=== PATIENT | female | born 1930 | race Caucasian/White ===

== ENCOUNTER 2016-05-29 03:05 | Inpatient (IN) | payer OTHER, BC ==
[~2016-05-29] VITALS: Ht 154.9 cm; Wt 46.3 kg
[~2016-05-29 03:05] MED LIST: ATORVASTATIN CA20 MG PO; CALCIUM 600600 M2 PO; DIOVAN160 M1 PO; FOLATE1 MG PO; GLUCOTROL5 MG PO; LEVAQUIN500 MG PO; MACROBID100 M1 PO; SINEQUAN25 MG PO; SYNTHROID0.075 MG PO; THEROMEGA1000 MG PO; TIZANIDINE HYDRO2 M1 PO; TOPROL XL100 MG PO; VITAMIN D31000 I1 PO; ZYRTEC10 M2 PO
[2016-05-29 03:29] VITALS: BP 158/71
[2016-05-29] MEDS ORDERED: IBUPROFEN 400 MG TAB ONE (03:29)
--- NOTE | 2016-05-29 03:33 | NUR ---
PT BIBA C/O LLQ, RLQ, AND SUPRAPUBIC PAIN RADIATING TO BL FLANKS SINCE 0200 TODAY. STATES MED HX OF UTI, HTN, AND HYPERTHYROIDISM . DENIES D; SKIN IS PINK/WARM/DRY; AAOX4 WITH EVEN AND STEADY GAIT; LUNGS CLEAR BL; HR EVEN AND REGULAR; PT DENIES ANY FEVER, CP, SOB, OR COUGH AT THIS TIME; PATIENT STATES PAIN OF 5/10 AT THIS TIME; VSS; PATIENT POSITIONED FOR COMFORT; HOB ELEVATED; BEDRAILS UP X2; BED DOWN. ER MD MADE AWARE OF PT STATUS.
[2016-05-29] MEDS ORDERED: NACL 0.9% 500 ML IV SCH (03:39)
--- NOTE | 2016-05-29 04:40 | NUR ---
PT SLEEPING, NO S/S OF DISTRESS NOTED AT THIS TIME.
[2016-05-29] MEDS ORDERED: LEVOFLOXACIN 500 MG/D5W PREMIX 100 ML IV ONE (05:50)
[2016-05-29] MEDS ORDERED: ONDANSETRON 4 MG/2 ML VIAL IVP PRN (06:30)
[2016-05-29] MEDS ORDERED: ACETAMINOPHEN 325 MG TAB PO PRN (06:30)
[2016-05-29] MEDS ORDERED: HYDROcodone/APAP 5/325 MG 1 TAB TAB PO PRN (06:30)
--- NOTE | 2016-05-29 06:50 | NUR ---
Patient will be admitted to care of DR ANSARI. Admited to TELEMETRY. Will go to room 108 B. Belongings list completed. Report to BERNARDA REED.
--- NOTE | 2016-05-29 06:54 | NUR ---
PT TRASFERRED VIA GURNEY WITH SUPPLY CHAIN PLANNER ON BED. TRASFFERED BY SUKUMAR RN, AND AYANNA, EMT. STABLE, NO S/S OF DISTRESS DURING TRANSFER.
--- NOTE | 2016-05-29 07:30 | NUR ---
RECEIVED REPORT FROM THE SAMPLE SEWER NURSE AT BEDSIDE FOR CONTINUITY OF CARE. PATIENT IS AWAKE, ALERT, AND ORIENTED X4. ABLE TO FOLLOW COMMAND AND CLEAR SPEECH. IV ON THE LEFT FOREARM ASYMPTOMATIC, INTACT, PATENT. IV FLUID INFUSING WELL. INITIAL ASSESSMENT DONE. ON 2L O2 VIA NC. NO SOB. SKIN INTACT. ABLE TO AMBULATE TO THE BATHROOM WITH ASSISTANCE. NO S/S OF DISTRESS. VITALS TAKEN IN NORMAL LIMIT. SAFETY MEASURED CHECKED AND WILL CONTINUE TO MONITOR. CALL LIGHT WITHIN REACH.
--- NOTE | 2016-05-29 08:13 | NUR ---
PATIENT HAS BEEN SCREENED AND CATEGORIZED HIGH NUTRITION RISK. PATIENT WILL BE SEEN WITHIN 1-2 DAYS OF ADMISSION. 05/29/16-05/30/[address]
[2016-05-29 08:14] VITALS: BP 134/108
--- NOTE | 2016-05-29 08:30 | NUR ---
DUE MEDS GIVEN AND ROCEPHIN GIVE, PATIENT TOLERATED WELL. WILL CONTINUE TO MONITOR. CALL LIGHT WITHIN REACH.
[2016-05-29] MEDS: NACL 0.9% 1,000 ML IV SCH (08:52)
[2016-05-29] MEDS: DOCUSATE SODIUM 100 MG GELCAP PO SCH (08:53)
[2016-05-29] MEDS ORDERED: INSULIN ASPART SLIDING SCALE 100 UNITS/ML VIAL SUBQ PRN (09:15)
[2016-05-29] MEDS ORDERED: POTASSIUM CHLORIDE 10 MEQ TABER PO SCH (09:38)
--- NOTE | 2016-05-29 10:00 | NUR ---
K-DUR WAS GIVEN FOR LOW POTASSIUM OF 3.3.
--- NOTE | 2016-05-29 10:30 | NUR ---
IV ON THE FOREARM ACCIDENT REMOVAL WHILE IN THE BATHROOM. ANOTHER IV INSERTED ON THE RIGHT FOREARM 20 GAUGE.
--- NOTE | 2016-05-29 11:21 | NUR ---
05/29/16 RD INITIAL ASSESSMENT COMPLETED PLEASE REFER TO NUTRITION ASSESSMENT UNDER CARE ACTIVITY FOR ESTIMATED NUTRITIONAL NEEDS. RD RECOMMENDATIONS: 1. CONTINUE CCHO 60 GM DIET TOLERATED PER MD 2. NOTE PT WITH INCREASED KCAL AND PROTEIN NEEDS D/T SEPSIS --ENCOURAGE INCREASED PO INTAKES 3. RD WILL F/U 3-5 DAYS; MODERATE RISK. CHRIS POLO R
--- NOTE | 2016-05-29 11:30 | NUR ---
BLOOD SUGAR CHECKED 149 NO COVERAGE NEEDED.
--- NOTE | 2016-05-29 11:44 | NUR ---
SS NOTE: PT REQUESTED THAT I CALL HER SON, REYNALDO TO INFORM HIM OF HER HOSPITALIZATION AND TO ASK HIM TO PROVIDE HER WITH ASSISTANCE FOR APPLYING FOR MEDI-TIGRE SO THAT SHE CAN THEN APPLY FOR IN HOME SUPPORTIVE SERVICES MESSAGE LEFT FOR PT'S SON, REYNALDO REGARDING THE ABOVE INFORMATION
[2016-05-29] MEDS: BLOOD GLUCOSE MONITORING 1 DEV DEV FS SCH ×3 (11:45→20:51)
[2016-05-29 12:00] VITALS: BP 117/59
--- NOTE | 2016-05-29 12:00 | NUR ---
VITALS TAKEN AND WITHIN THE NORMAL LIMIT WILL CONTINUE TO MONITOR.
--- NOTE | 2016-05-29 12:33 | NUR ---
DR. ALONSO IS MADE AWARE OF THE LOW MAGNESIUM LEVEL OF 1.5.
[2016-05-29] MEDS ORDERED: MAG SULF 2000 MG/WATER PREMIX 50 ML IV SCH (15:00)
--- NOTE | 2016-05-29 15:00 | NUR ---
MAG SULF GIVEN FOR LOW MAGNESIUM OF 1.5.
--- NOTE | 2016-05-29 15:38 | NUR ---
SS NOTE: I RECEIVED A CALL BACK FROM PT'S SON, REYNALDO. I PROVIDED HIM WITH THE CONTACT INFORMATION TO APPLY FOR MEDI-TIGRE FOR PT AND TO ALSO APPLY FOR IN HOME SUPPORTIVE SERVICES ONCE PT OBTAINS MEDI-TIGRE.
[2016-05-29 16:00] VITALS: BP 112/64
--- NOTE | 2016-05-29 16:00 | NUR ---
VITALS TAKEN AND WITHIN THE NORMAL LIMIT. WILL CONTINUE TO MONITOR.
--- NOTE | 2016-05-29 16:44 | NUR ---
PREVIOUS ECHO REPORT PLACED IN THE CHART
--- NOTE | 2016-05-29 19:24 | NUR ---
REPORT GIVEN TO METER INSTALLER NURSE FOR CONTINUITY OF CARE AT BEDSIDE. PATIENT IN STABLE CONDITION AND ALL NEED MET AT THIS TIME.
--- NOTE | 2016-05-29 19:25 | NUR ---
RECEIVED PT FROM LEV RN PT AAOX4 CHINESE SPEAKER, USING BSC O TELEMETRY SR IV ON RT FA INFUSING WELL , INITIAL ASSESSMENT DONE
[2016-05-29 20:00] VITALS: BP 126/61
[2016-05-29] MEDS: DOXEPIN 25 MG CAP PO SCH (20:52)
[2016-05-29] MEDS: SACCHAROMYCES 250 MG CAP PO SCH (20:52)
--- NOTE | 2016-05-29 21:00 | NUR ---
BLOOD SUGAR TEST 150 NOT COVERAGE
[2016-05-30] VITALS: BP 97/48
--- NOTE | 2016-05-30 | NUR ---
PT IS ASSISTED TO BSC NOT DISTRESS NOTED ON TELEMETRY SR
[2016-05-30] MEDS: NACL 0.9% 1,000 ML IV SCH ×3 (02:42→20:16)
[2016-05-30 04:00] VITALS: BP 117/54
--- NOTE | 2016-05-30 04:00 | NUR ---
SPONGE BATH GIVEN LINEN CHANGED USING BSC VOIDING WELL ON TELEMETRY SR
[2016-05-30] MEDS: BLOOD GLUCOSE MONITORING 1 DEV DEV FS SCH ×4 (06:11→21:00)
[2016-05-30] MEDS: LEVOTHYROXINE 0.075 MG TAB PO SCH (06:12)
--- NOTE | 2016-05-30 06:22 | NUR ---
BLOOD TEST 100 PT REMAIN STBLE NOT DISTRESS NOTED VOIDING WELL ON TELEMETRY SR
--- NOTE | 2016-05-30 07:20 | NUR ---
RECEIVED REPORT FROM THE FRONT OFFICE COORDINATOR NURSE PRESTON AT BEDSIDE FOR CONTINUITY OF CARE. PATIENT IS AWAKE, ALERT, AND ORIENTED X4. ABLE TO FOLLOW COMMAND AND CLEAR SPEECH. IV ON THE RIGHT FOREARM ASYMPTOMATIC, INTACT, PATENT. IV FLUID INFUSING WELL. INITIAL ASSESSMENT DONE. ON 2L O2 VIA NC. NO SOB. SKIN INTACT. ABLE TO AMBULATE TO THE BATHROOM WITH ASSISTANCE. NO S/S OF DISTRESS. VITALS TAKEN AND BP IS LOW 101/47 BUT OTHER VITALS ARE WITHIN THE NORMAL LIMIT. SAFETY MEASURED CHECKED AND WILL CONTINUE TO MONITOR. CALL LIGHT WITHIN REACH.
[2016-05-30] MEDS ORDERED: glipiZIDE 5 MG TAB PO SCH (07:30)
[2016-05-30 07:47] VITALS: BP 101/47
--- NOTE | 2016-05-30 08:00 | NUR ---
METFORMIN AND ROCEPHIN GIVEN. PATIENT TOLERATED WELL.
[2016-05-30] MEDS: LEVOFLOXACIN 250 MG/D5 PREMIX 50 ML IV SCH (08:47)
[2016-05-30] MEDS: tiZANidine 4 MG TAB PO SCH (08:48)
[2016-05-30] MEDS: ATORVASTATIN 20 MG TAB PO SCH (08:48)
[2016-05-30] MEDS: CHOLECALCIFEROL 1,000 IU TAB PO SCH (08:48)
[2016-05-30] MEDS: SACCHAROMYCES 250 MG CAP PO SCH ×2 (08:48→20:15)
[2016-05-30] MEDS: DOCUSATE SODIUM 100 MG GELCAP PO SCH (08:48)
[2016-05-30] MEDS: CALCIUM CARB 600 MG TAB PO SCH (08:49)
[2016-05-30] MEDS: METOPROLOL SUCCINATE 50 MG TABER PO SCH (08:49)
[2016-05-30] MEDS: FOLIC ACID 1 MG TAB PO SCH (08:49)
[2016-05-30] MEDS: VALSARTAN 80 MG TAB PO SCH (08:56)
--- NOTE | 2016-05-30 09:00 | NUR ---
RECHECKED BP, 105/49. HIGH BLOOD PRESSURE MED HELD DUE TO LOW BP. OTHER DUE MEDS GIVEN. PATIENT TOLERATED WELL. WILL CONTINUE TO MONITOR. CALL LIGHT WITHIN REACH.
--- NOTE | 2016-05-30 11:30 | NUR ---
CHECKED BLOOD SUGAR 73 NO COVERAGE NEEDED.
[2016-05-30 12:00] VITALS: BP 106/57
--- NOTE | 2016-05-30 12:00 | NUR ---
VITAL TAKEN AND WITHIN THE NORMAL LIMIT. WILL CONTINUE TO MONITOR.
--- NOTE | 2016-05-30 13:00 | NUR ---
PATIENT DENIED ANY PAIN, NO S/S DISTRESS. EATING HER LUNCH. CALL LIGHT WITHIN REACH.
[2016-05-30 16:00] VITALS: BP 132/60
--- NOTE | 2016-05-30 16:00 | NUR ---
VITALS TAKEN WITHIN THE NORMAL LIMIT. WILL CONTINUE TO MONITOR.
--- NOTE | 2016-05-30 16:30 | NUR ---
BLOOD SUGAR CHECKED 108 NO COVERAGE NEEDED.
--- NOTE | 2016-05-30 19:17 | NUR ---
REPORT GIVEN TO THE RUBBER MILL TENDER NURSE KEVIN AT BEDSIDE. PATIENT IS AWAKE AND IN STABLE CONDITION. ALL NEEDS MET AT THIS TIME.
--- NOTE | 2016-05-30 19:30 | NUR ---
Patient's Plan of Care was discussed and reviewed with HAND ASSEMBLER FOR PULLER OVER: KEVIN Layton
[2016-05-30 20:00] VITALS: BP_SYST 127; BP_SYST 130; BP_DIAS 58; BP_DIAS 65
--- NOTE | 2016-05-30 20:00 | NUR ---
PT IS CURRENTLY AWAKE ALERT RESTING IN BED ASSISTED TO USE THE BEDSIDE COMMODE AND THEN ASSISTED BACK TO BED NEEDS MET.WILL CONTINUE TO MONITOR.CALL LIGHT WITHIN REACH
[2016-05-30] MEDS: DOXEPIN 25 MG CAP PO SCH (20:15)
--- NOTE | 2016-05-30 22:15 | NUR ---
PT IS CURRENTLY SLEEPING IN BED NO PAIN OR DISCOMFORT IVF INFUSING WELL WILL CONTINUE TO MONITOR.
[2016-05-31] VITALS: BP 127/65
--- NOTE | 2016-05-31 00:24 | NUR ---
PT ASSISTED TO THE BEDSIDE COMMODE BY RICKEY LAU AND BACK TO BED,NEEDS MET IVF INFUSING WELL WILL CONTINUE TO MONITOR.
--- NOTE | 2016-05-31 02:50 | NUR ---
PT IS CURRENTLY RESTING IN BED, IN NO DISTRESS WILL CONTINUE TO MONITOR.CALL LIGHT WITHIN REACH.CONTINUES TO BE ASSISTED TO THE BATHROOM NEEDED BY THE PATIENT.
[2016-05-31 04:00] VITALS: BP 134/71
--- NOTE | 2016-05-31 04:00 | NUR ---
PT AWAKENED FOR VITAL SIGNS,PT STABLE, PT DENIES PAIN AND DISCOMFORT NEEDS MET WILL CONTINUE TO MONITOR.
[2016-05-31] MEDS: LEVOTHYROXINE 0.075 MG TAB PO SCH (06:41)
--- NOTE | 2016-05-31 06:51 | NUR ---
PT STABLE ASSISTED TO THE BEDSIDE COMMODE AND BACK TO BED,PT DENIES ANY PAIN AT THIS TIME.IVF INFUSING WELL WILL CONTINUE TO MONITOR.
--- NOTE | 2016-05-31 07:25 | NUR ---
ASSUMED CONTINUITY OF CARE. NO SIGNS AND SYMPTOMS OF ACUTE DISTRESS NOTICED. INITIAL ASSESSMENT DONE. FAMILIARIZED WITH SURROUNDINGS. EXPLAINED DIAGNOSIS, PLAN OF CARE, PAIN MANAGEMENT TEACHING, USE OF CALL LIGHT/BED/TV/BATHROOM. VERBALIZED UNDERSTANDING. FALL PRECAUTION APPLIED. CALL LIGHT WITHIN REACH.
[2016-05-31] MEDS: BLOOD GLUCOSE MONITORING 1 DEV DEV FS SCH ×4 (07:29→21:10)
--- NOTE | 2016-05-31 07:29 | NUR ---
PT STABLE REPORT ENDORSED TO FLOWER CHAIDEZ AT BEDSIDE.
--- NOTE | 2016-05-31 07:30 | NUR ---
PATIENT'S PLAN OF CARE AND MEDICATION REGIMENTS DISCUSSED AND REVIEWED WITH NURSE FORREST CRENSHAW.
[2016-05-31 08:00] VITALS: BP 149/74
[2016-05-31] MEDS: VALSARTAN 80 MG TAB PO SCH (08:51)
[2016-05-31] MEDS: DOCUSATE SODIUM 100 MG GELCAP PO SCH ×2 (08:51→21:17)
[2016-05-31] MEDS: NACL 0.9% 1,000 ML IV SCH ×2 (08:51→21:00)
[2016-05-31] MEDS: FOLIC ACID 1 MG TAB PO SCH (08:52)
[2016-05-31] MEDS: tiZANidine 4 MG TAB PO SCH (08:52)
[2016-05-31] MEDS: CHOLECALCIFEROL 1,000 IU TAB PO SCH (08:52)
[2016-05-31] MEDS: CALCIUM CARB 600 MG TAB PO SCH (08:52)
[2016-05-31] MEDS: ATORVASTATIN 20 MG TAB PO SCH (08:52)
[2016-05-31] MEDS: METOPROLOL SUCCINATE 50 MG TABER PO SCH (08:52)
[2016-05-31] MEDS: SACCHAROMYCES 250 MG CAP PO SCH ×2 (08:52→21:17)
[2016-05-31] MEDS: LEVOFLOXACIN 250 MG/D5 PREMIX 50 ML IV SCH (09:35)
--- NOTE | 2016-05-31 11:00 | NUR ---
ASSISTED TO BEDSIDE COMMODE. TOLERATED WELL. NO C/O PAIN. KEEP SAFE. CALL LIGHT WITHIN REACH.
[2016-05-31] MEDS ORDERED: MAGNESIUM CITRATE 300 ML BTL PO PRN (11:55)
[2016-05-31 12:00] VITALS: BP 109/58
--- NOTE | 2016-05-31 15:00 | NUR ---
IV ACCESS ON RIGHT FOREARM GAUGE #20 INFILTRATED. INSERTED NEW IV ON RIGHT FOREARM GAUGE #22 WITH ASSISTANCE FROM OG SANCHEZ -BERNARDA. TOLERATED WELL.
[2016-05-31 16:00] VITALS: BP 147/77
--- NOTE | 2016-05-31 19:10 | NUR ---
RECEIVED REPORT FROM BERNARDA CLATYON AT BEDSIDE. INITIAL ASSESSMENT COMPLETED. PT AAOX4. PT STABLE, PT RESTING IN BED. PT HAS IV TO RIGHT FOREARM G 22; ASYMPTOMATIC, PATENT AND INTACT. PT'S SKIN IS INTACT. PT USES BEDSIDE COMMODE. ORIENTED PT TO ROOM AND SURROUNDINGS AND USE OF CALL LIGHT. EXPLAINED PLAN OF CARE TO PT AND SHE VERBALIZES UNDERSTANDING. SAFETY MEASURES IN PLACE, WILL CONTINUE TO MONITOR PT.
--- NOTE | 2016-05-31 19:14 | NUR ---
BEDSIDE REPORT GIVEN TO EMMA CAMPOS -BERNARDA. IVF INFUSING WELL. IN STABLE CONDITION.
[2016-05-31 20:00] VITALS: BP 144/88
--- NOTE | 2016-05-31 20:05 | NUR ---
APPLIED SCDS ON PT.
[2016-05-31] MEDS: DOXEPIN 25 MG CAP PO SCH (21:18)
--- NOTE | 2016-05-31 21:20 | NUR ---
PT TOLERATED 2100 MEDS WELL, CALL LIGHT WITHIN REACH.
--- NOTE | 2016-05-31 23:35 | NUR ---
ASSISTED PT TO BEDSIDE COMMODE, PT STABLE. PT BACK IN BED; RECONNECTED IV FLUIDS AND PUT SCDS BACK ON. CALL LIGHT WITHIN REACH.
[2016-06-01 01:46] VITALS: BP 141/75
--- NOTE | 2016-06-01 02:10 | NUR ---
PT REQUESTING A BLANKET; PT STATED THAT SHE IS COLD. CALL LIGHT WITHIN REACH.
[2016-06-01 04:00] VITALS: BP 145/68
[2016-06-01] MEDS: NACL 0.9% 1,000 ML IV SCH ×2 (04:45→22:00)
--- NOTE | 2016-06-01 04:53 | NUR ---
PT REQUESTED TO HAVE SCDS REMOVED TO USED THE BEDSIDE COMMODE. PT BACK IN BED NOW. PT STABLE, WILL CONTINUE TO MONITOR PT.
[2016-06-01] MEDS: LEVOTHYROXINE 0.075 MG TAB PO SCH (05:34)
--- NOTE | 2016-06-01 05:37 | NUR ---
BOX SPRING FRAME BUILDER AT BEDSIDE DRAWING BLOOD. CALL LIGHT WITHIN REACH.
--- NOTE | 2016-06-01 05:37 | NUR ---
0630 MED GIVEN. PT STABLE. CALL LIGHT WITHIN REACH.
[2016-06-01] MEDS: BLOOD GLUCOSE MONITORING 1 DEV DEV FS SCH ×4 (06:02→21:02)
--- NOTE | 2016-06-01 07:00 | NUR ---
ASSUMED CONTINUITY OF CARE. NO SIGNS AND SYMPTOMS OF ACUTE DISTRESS NOTED. INITIAL ASSESSMENT DONE. EXPLAINED DIAGNOSIS, PLAN OF CARE, PAIN MANAGEMENT TEACHING, USE OF CALL LIGHT/BED/BEDSIDE COMMODE/BATHROOM. VERBALIZED UNDERSTANDING. FALL PRECAUTION APPLIED. CALL LIGHT WITHIN REACH.
--- NOTE | 2016-06-01 07:00 | NUR ---
ENDORSED PT IN STABLE CONDITION TO BERNARDA CLAYTON FOR CONTINUITY OF CARE.
[2016-06-01 08:00] VITALS: BP 149/73
[2016-06-01] MEDS: ATORVASTATIN 20 MG TAB PO SCH (08:38)
[2016-06-01] MEDS: CALCIUM CARB 600 MG TAB PO SCH (08:38)
[2016-06-01] MEDS: FOLIC ACID 1 MG TAB PO SCH (08:39)
[2016-06-01] MEDS: tiZANidine 4 MG TAB PO SCH (08:39)
[2016-06-01] MEDS: METOPROLOL SUCCINATE 50 MG TABER PO SCH (08:39)
[2016-06-01] MEDS: DOCUSATE SODIUM 100 MG GELCAP PO SCH ×2 (08:39→20:58)
[2016-06-01] MEDS: SACCHAROMYCES 250 MG CAP PO SCH ×2 (08:40→20:58)
[2016-06-01] MEDS: CHOLECALCIFEROL 1,000 IU TAB PO SCH (08:40)
[2016-06-01] MEDS: VALSARTAN 80 MG TAB PO SCH (08:40)
[2016-06-01] MEDS: LEVOFLOXACIN 250 MG/D5 PREMIX 50 ML IV SCH (09:23)
[2016-06-01] MEDS ORDERED: MAGNESIUM CITRATE 300 ML BTL PO SCH (10:07)
[2016-06-01] MEDS ORDERED: MAG SULF 2000 MG/WATER PREMIX 50 ML IV SCH (10:30)
--- NOTE | 2016-06-01 11:37 | NUR ---
ASSISTED TO BATHROOM. TOLERATED WELL. NO C/O PAIN. NO SOB, NOTED.
[2016-06-01 12:00] VITALS: BP 138/71
[2016-06-01 16:00] VITALS: BP 148/59
--- NOTE | 2016-06-01 19:05 | NUR ---
BEDSIDE REPORT GIVEN TO EMMA CAMPOS -BERNARDA. IVF INFUSING WELL. IN STABLE CONDITION.
--- NOTE | 2016-06-01 19:20 | NUR ---
RECEIVED REPORT FROM BERNARDA CLAYTON AT BEDSIDE. INITIAL ASSESSMENT COMPLETED. PT AAOX4. PT STABLE, PT RESTING IN BED. PT HAS IV TO RIGHT FOREARM G 22; ASYMPTOMATIC, PATENT AND INTACT. PT'S SKIN IS INTACT. PT USES BEDSIDE COMMODE. ORIENTED PT TO ROOM AND SURROUNDINGS AND USE OF CALL LIGHT. EXPLAINED PLAN OF CARE TO PT AND SHE VERBALIZES UNDERSTANDING. SAFETY MEASURES IN PLACE, WILL CONTINUE TO MONITOR PT.
[2016-06-01 20:00] VITALS: BP 141/62
[2016-06-01] MEDS: DOXEPIN 25 MG CAP PO SCH (20:58)
--- NOTE | 2016-06-01 21:02 | NUR ---
PT TOLERATED 2100 MEDS WELL. CALL LIGHT WITHIN REACH.
--- NOTE | 2016-06-01 22:44 | NUR ---
PT ASKED TO HAVE IV DISCONNECTED TO AMBULATE TO THE RESTROOM, PT HAD A BM. PT BACK IN BED. RECONNECTED TO IV FLUIDS, SCDS ON. CALL LIGHT WITHIN REACH.
--- NOTE | 2016-06-01 23:22 | NUR ---
PT STABLE, PT DENIES PAIN/DISCOMFORT. WILL CONTINUE TO MONITOR PT.
[2016-06-02] VITALS: BP 148/69
--- NOTE | 2016-06-02 01:29 | NUR ---
PT USING THE RESTROOM AT THIS TIME. PT STABLE. PT VERY TALKATIVE. WILL CONTINUE TO MONITOR PT.
--- NOTE | 2016-06-02 03:42 | NUR ---
PT SLEEPING COMFORTABLY AT THIS TIME, NO SIGNS OF DISTRESS/DISCOMFORT NOTED AT THIS TIME. CALL LIGHT WITHIN REACH.
[2016-06-02 04:16] VITALS: BP 145/71
[2016-06-02] MEDS: NACL 0.9% 1,000 ML IV SCH (05:46)
[2016-06-02] MEDS: LEVOTHYROXINE 0.075 MG TAB PO SCH (05:49)
--- NOTE | 2016-06-02 05:52 | NUR ---
PT TOLERATED 0630 MED WELL, PT STABLE. WILL CONTINUE TO MONITOR PT.
--- NOTE | 2016-06-02 07:24 | NUR ---
RECEIVED REPORT FROM NIGHT NURSE, PT IS AAOX4, ON ROOM AIR , IV TO RIGHT FA 22G NS AT 80ML/HR INFUSING WELL, NO S/S OF DISTRESS OR DISCOMFORT NOTED. INITIAL ASSESSMENT COMPLETED, REVIEWED PLAN OF CARE WITH PT, PT VERBALIZED UNDERSTANDING, ORIENTED PT TO ROOM AND ENVIRONMENT. CALL LIGHT WITHIN REACH. WILL CONTINUE TO MONITOR.
--- NOTE | 2016-06-02 07:24 | NUR ---
ENDORSED PT IN STABLE CONDITION TO BERNARDA JOSEPH FOR CONTINUITY OF CARE.
[2016-06-02] MEDS: BLOOD GLUCOSE MONITORING 1 DEV DEV FS SCH ×3 (07:30→17:00)
[2016-06-02 08:00] VITALS: BP 148/65
[2016-06-02] MEDS ORDERED: FLORASTOR 33 MG1 CAP PO (08:29)
[2016-06-02] MEDS ORDERED: LEVAQUIN250 M1 PO (08:29)
[2016-06-02] MEDS: METOPROLOL SUCCINATE 50 MG TABER PO SCH (09:00)
[2016-06-02] MEDS: DOCUSATE SODIUM 100 MG GELCAP PO SCH (09:00)
[2016-06-02] MEDS: LEVOFLOXACIN 250 MG/D5 PREMIX 50 ML IV SCH (09:53)
[2016-06-02] MEDS: tiZANidine 4 MG TAB PO SCH (09:53)
[2016-06-02] MEDS: CHOLECALCIFEROL 1,000 IU TAB PO SCH (09:53)
[2016-06-02] MEDS: FOLIC ACID 1 MG TAB PO SCH (09:54)
[2016-06-02] MEDS: CALCIUM CARB 600 MG TAB PO SCH (09:54)
[2016-06-02] MEDS: VALSARTAN 80 MG TAB PO SCH (09:55)
[2016-06-02] MEDS: ATORVASTATIN 20 MG TAB PO SCH (09:55)
[2016-06-02] MEDS: SACCHAROMYCES 250 MG CAP PO SCH (09:55)
--- NOTE | 2016-06-02 10:04 | NUR ---
DUE MEDICATION GIVEN, NOTICED SWOLLEN IV SITE. PT REFUSING NEW IV INSERTION AT THIS TIME, WILL TRY AGAIN LATER.
--- NOTE | 2016-06-02 11:30 | NUR ---
NEW IV INSERTED RIGHT WRIST 22G, PT TOLERATED WELL. WILL CONTINUE TO MONITOR.
--- NOTE | 2016-06-02 11:30 | NUR ---
DISCUSSED DISCHARGE PLAN WITH PT, PT VERBALIZED UNDERSTANDING. INFORMED PT THAT SON WILL BE PICKING HER UP AFTER 1600. Addendum: 06/02/16 at 1325 by Tyra Saha RN 1230: DISCUSSED DISCHARGE PLAN WITH PT, PT VERBALIZED UNDERSTANDING. INFORMED PT THAT SON WILL BE PICKING HER UP AFTER 1600.
--- NOTE | 2016-06-02 11:33 | NUR ---
SS NOTE: PER MANJINDER FROM [facility] ([phone]), PT CAN GO TO ROOM 38A ANYTIME UNDER DR. AMARO. HELIO PONCE.
--- NOTE | 2016-06-02 11:35 | NUR ---
CHECKED IN ON PT, PT CURRENTLY AT [id number] COMMODE. ALL NEEDS MET. CALL LIGHT WITHIN REACH. WILL CONTINUE TO MONITOR.
[2016-06-02 12:00] VITALS: BP 131/74
--- NOTE | 2016-06-02 12:02 | NUR ---
SS NOTE: I SPOKE WITH PT BEDSIDE AND INFORMED HER THAT SHE HAS BEEN ACCEPTED AT [facility], SHE WAS IN AGREEMENT WITH GOING THERE UPON DISCHARGE. Addendum: 06/02/16 at 1313 by Katty Garza SS PT'S ACCEPTING PHYSICIAN WILL BE DR. Rosaura HAYES
--- NOTE | 2016-06-02 12:06 | NUR ---
CM NOTE SPOKE W/ REYNALDO, SON RE. PATIENT DISCHARGE TO [facility] FOR [facility]ICAL [facility]ERAPY. HE WILL BE PICKING UP PATIENT AFTER 1600. JAKE MENCHACA MADE AWARE. PATIENT WILL BE GOING TO [facility], [address]. FOR RN REPORT: [phone]
--- NOTE | 2016-06-02 12:30 | NUR ---
DISCUSSED DISCHARGE PLAN WITH PT, PT VERBALIZED UNDERSTANDING. INFORMED PT THAT SON WILL BE PICKING HER UP AFTER 1600.
--- NOTE | 2016-06-02 13:54 | NUR ---
CHECKED IN ON PT, PT CURRENTLY SLEEPING, NO S/ S OF RESPIRATORY DISTRESS NOTED. CALL LIGHT WITHIN REACH WILL CONTINUE TO MONITOR.
--- NOTE | 2016-06-02 15:05 | NUR ---
CONTACTED [facility] AT [phone], REPORT GIVEN TO
[2016-06-02 16:00] VITALS: BP 143/80
--- NOTE | 2016-06-02 16:25 | NUR ---
PT SIGNED ALL DISCHARGE PAPERWORK, IV REMOVED TIP INTACT, ALL ID BANDS REMOVED, EDUCATED PT ON NEW MEDICATION, PT VERBALIZED UNDERSTANDING, SON INFORMED OF ADDRESS AND ROOM NUMBER AT [facility].
--- NOTE | 2016-06-02 16:40 | NUR ---
PT WAS WHEELED OUT TO FRONT LOBBY IN STABLE CONDITION. ACCOMPANIED BY SON.
== END 2016-06-02 16:40 | DRG 871 ==
LOC: MED 03:05 → MTU 06:28
PROVIDERS: ADMIT Family Medicine; ATTEND Family Medicine
DX: A41.9 Sepsis, unspecified organism (principal); N17.0 Acute kidney failure with tubular necrosis; E43 Unspecified severe protein-calorie malnutrition; N39.0 Urinary tract infection, site not specified; Z68.1 Body mass index [BMI] 19.9 or less, adult; D68.69 Other thrombophilia; E87.6 Hypokalemia; D64.9 Anemia, unspecified; E78.5 Hyperlipidemia, unspecified; E11.65 Type 2 diabetes mellitus with hyperglycemia; E03.9 Hypothyroidism, unspecified; I10 Essential (primary) hypertension; F32.9 Major depressive disorder, single episode, unspecified; Z60.2 Problems related to living alone; E83.42 Hypomagnesemia; M19.90 Unspecified osteoarthritis, unspecified site; Z88.6 Allergy status to analgesic agent; Z88.0 Allergy status to penicillin; Z88.8 Allergy status to other drugs, medicaments and biological substances; Z79.899 Other long term (current) drug therapy; Z90.49 Acquired absence of other specified parts of digestive tract; Z90.710 Acquired absence of both cervix and uterus; Z80.3 Family history of malignant neoplasm of breast